=== PATIENT | male | born 1980 | race African-American/Black ===

== ENCOUNTER 2017-03-25 07:51 | Outpatient (RCR) | payer OTHER, MEDICARE ==
--- NOTE | 2017-04-04 14:19 | PT/OT/ST INITIAL EVALUATION ---
Department of Health and Human Services Form Approved Health Care Financing Administration OMB No. [id number] PLAN OF CARE/ASSESSMENT FOR OUTPATIENT REHABILITATION (Complete for Initial Claims Only) 1. PATIENT'S NAME Lin Rowland 2. ACC # [id number] 3. BONNIE 4. PROVIDER NO. [id number] 5. TYPE: PT 6. PRIOR HOSPITALIZATION Low back pain 7. PRIMARY DX 8. SECONDARY DX 9. ONSET DATE 12/2002 worsening since this time 10. REFERRAL DATE 11. SOC. DATE 03/25/2017 12. TIME OF EVAL 9:10 a.m. 12. REFERRING PHYSICIAN 13. CHARGES/UNITS 14. G CODES 15. PRIOR LEVEL OF FUNCTION; PERTINENT HISTORY (Prior therapy results, reason for referral.) S: Reason for referral: Prior to therapy the patient did consent to today's evaluation and treatment. The patient is a 36-year-old male referred to physical therapy by REYES Thompson to address chronic low back pain. The patient states he was in the when he had a fall in 2002. The patient states immediately after this he had significant increased pain and was on light duty following this. However ever since this accident happened the patient's back pain has been worsening. He states now due to the chronic pain and him getting weak his spine is "crooked" and he is "out of shape" because any activity causes his pain. The patient states He is having right lower extremity radicular symptoms with his right lower extremity falling asleep when he sits of stands "wrong" and patient does state down the right lower extremity he additionally gets sensation such as stabbing and a pulsing sensation. The patient states he is in bed most of the time as this is his most comfortable position lying on his right side with slightly twist in the low back is the most comfortable position for him. The patient is trying to lose weight however he has not been successful in this as any increased activity significantly increases his pain. The patient does states it is possible that his symptoms are consistent with what he believes is sciatica. The patient is disabled due to being by his "unemployable" but ultimately is disabled due to PTSD and chronic right knee pain. Prior level of function: Includes the patient being able to perform most activities with pain. Current level of function: Currently the patient is able to walk daily however his distance is decreasing and his pain is increasing as he performs this activity. All activities of daily living are challenging for him and he is unable to work due to the back pain, including difficulty with activities around the home. Therapy history: Includes chiropractor with fair results. Pain level: In the back it is 10/10. In the leg 10/10. Pain is present when he is weight bearing. The patient describes the pain as a stabbing sensation or catching in his back. Obstacles to delivery of care: Include chronic pain issues. Relieving factors: Tylenol and Motrin which he occasionally takes. What he tries to manage with is stretching, sitting and popping his back. Diagnostic testing: MRI which show multiple levels of bulging and herniated discs per patient report from L1 to L5. Past medical history: Does include PTSD, depression, HTN, diabetes mellitus of which his sugars typically run around 110. Current medications: Glipizide, laxatives and an insomnia medication. Personal health rating: The patient does rate his overall and general health as fair. Patient's Goal: The patient's goal for physical therapy is to not have to resort to pain pills to manage his condition and to be able to walk without pain to get back to a normal exercise activity. The patient does state that he wishes to keep therapy to 1 time per week as he has to travel here from [place] and they have one vehicle and he is having difficulty coordinating PT schedule here with his 's work schedule. 16. INITIAL ASSESSMENT/SAFETY PRECAUTIONS/MEDICAL COMPLICATIONS (Level of function at start of care. Be specific, use objective measures, list problems.) O: APPEARANCE, OBSERVATION AND GAIT: The patient presents as a middle aged male who ambulates with a forward flexed posture. He additionally has a right Trendelenburg gait pattern and additionally ambulates with a wide base of support. The patient is guarded with all transitions. PALPATION: With palpation the patient does have increased tone and tightness throughout lumbar spine paraspinals. SPECIAL TESTS: Include negative slump test bilaterally, negative straight leg raise bilaterally. Deep tendon reflexes are within normal limits. OUTCOME ASSESSMENTS: Modified Oswestry and low back pain disability questionnaire which scored 38 percent disability. FUNCTION AND LIMITATION CODE: [id number] and [id number]. RANGE OF MOTION/FLEXIBILITY: Thoracolumbar spine is approximately 75 percent limited with forward flexion. All other motions grossly within normal limits. The patient was observed to have an L4 pitted and shift point present. Hamstring flexibility is within functional limits bilaterally. Piriformis flexibility is approximately 50 percent limited bilaterally and did recreate symptoms in his back. STRENGTH: Throughout the left lower extremity is grossly 5/5 throughout with exception of hip abduction which is 4-/5. Strength throughout the right lower extremity is grossly 4/5 throughout with exception of hip abduction which is 3+/5. Knee flexion which is 4+/5 and dorsiflexion which is 5/5. TODAY'S TREATMENT: Following initial evaluation which consisted of a moderate complexity evaluation due to limitation with all function and comorbidity such as diabetes, hypertension and PTSD. Therapeutic exercises was additionally performed and issued as a home exercise program along with ASTYM treatment to bilateral lumbar spine paraspinals. 17. INITIAL POC: (Specify procedures, modalities, short and middle or intermediate school principal goals) A: The patient presents to physical therapy with diagnosis of chronic low back pain with resultant decreased strength in the core and right lower extremity increased pain, decreased activity tolerate and increased radicular symptoms. PROGNOSIS: This patient does have a fair prognosis with regular therapy attendance, compliance with home exercise program. This patient is expected to benefit from physical therapy services or to have increased strength, increased activity tolerance to be able to self-manage this condition without pain medication. INFORMED CONSENT: The diagnoses, prognosis treatment plan with expected outcome are discussed with the patient. The patient did agree to today's establish plan of care. SHORT TERM GOALS: 1. The patient to be independent and compliant with home exercise program in 1 week. 2. The patient to have 50 percent decrease in right radicular symptoms, right lower extremity radicular symptoms in 4 weeks to allow walking 1 mile without pain. 3. The patient's bilateral hip abduction 4/5 in 6 weeks to allow a normalized gait for community mobility. 4. The patient's modified Oswestry and low back pain disability questionnaire no more than 25 percent disability in 8 weeks to allow return to walking without pain and to not have to resort to pain medication to manage this condition. P: Plan to treat patient 1 time per week for 8 weeks in order to address chronic low back pain. Therapeutic treatments to include modalities to decrease pain and inflammation. Therapeutic exercise to regain active range of motion strengthening and strengthening gait training, balance and proprioception training, patient education and home exercise program with emphasis on aquatic therapy. 19. DURATION 20. FUNCTIONAL LEVEL (End of claim period) 21. PHYSICIAN SIGNATURE ? ON FILE OR ENTER HERE: 22. DATE: I certify the need for these services furnished under this plan of care and if for partial hospitalization. 23. CERTIFICATION FROM THROUGH FORM [id number]
== END 2017-04-07 09:19 | disposition home or self-care (01) ==
LOC: PT 07:51
PROVIDERS: ATTEND Physician Assistant
DX: M54.5 Low back pain (principal)
CPT/HCPCS: 97110; 97140; 97162; G8978; G8979